=== PATIENT | male | born 1980 | race Caucasian/White ===

== ENCOUNTER 2021-05-31 13:00 | Emergency (ER) | payer BC ==
[2021-05-31] MEDS ORDERED: Sodium Chloride 0.9% 10 ML Syringe FLUSH PRN (14:36)
[2021-05-31] MEDS ORDERED: Pantoprazole 40 MG Vial IVPUSH ONE (14:36)
[2021-05-31] MEDS ORDERED: Sucralfate 1 GM Tab PO ONE (14:39)
== END 2021-05-31 17:22 | disposition home or self-care (01) ==
LOC: JD.ED 13:00
DX: K29.00 Acute gastritis without bleeding (principal); K20.90 Esophagitis, unspecified without bleeding; Z79.899 Other long term (current) drug therapy; Z90.49 Acquired absence of other specified parts of digestive tract; Z87.891 Personal history of nicotine dependence
CPT/HCPCS: 36415; 80053; 84484; 85025; 93005; 96374; 99284; A9270; C9113

== ENCOUNTER 2021-06-13 10:57 | Day surgery (SDC) | payer BC ==
[~2021-06-13 10:57] MED LIST: Lactated Ringers 1,000 ML IV SCH; Lidocaine 1%/Sod Bicarbonate in NS 8.4% 1 ML Syringe IDERM PRN; Sodium Chloride 0.9% 10 ML Syringe FLUSH PRN; Sodium Chloride 0.9% 10 ML Syringe FLUSH SCH
[2021-06-13] MEDS ORDERED: fentaNYL 100 MCG/2 ML SDV ONE (14:05)
[2021-06-13] MEDS ORDERED: Propofol 200 MG/20 ML SDV ONE (14:05)
[2021-06-13] MEDS ORDERED: Midazolam 1 MG/ML 2 ML SDV ONE (14:05)
[2021-06-13] MEDS ORDERED: Lactated Ringers 1,000 ML ONE (14:50)
== END 2021-06-13 15:30 | disposition home or self-care (01) ==
LOC: JD.SDS 10:57
PROVIDERS: ATTEND Surgery
DX: K31.7 Polyp of stomach and duodenum (principal); K31.89 Other diseases of stomach and duodenum; K31.A0 Gastric intestinal metaplasia, unspecified; K21.9 Gastro-esophageal reflux disease without esophagitis; Z79.899 Other long term (current) drug therapy; Z90.49 Acquired absence of other specified parts of digestive tract; Z87.891 Personal history of nicotine dependence
CPT/HCPCS: 43239; J2250; J2704; J3010; J7120; 00731